=== PATIENT | male | born 1995 | race Caucasian/White ===

== ENCOUNTER 2019-01-18 10:10 | Emergency (ER) | payer BC ==
[~2019-01-18] VITALS: Ht 182.9 cm; Wt 67.1 kg
--- NOTE | 2019-01-18 10:17 | NUR ---
Patient seen by Dr. Mcgee.
--- NOTE | 2019-01-18 10:27 | NUR ---
DCD intructions and prescriptions given to pt. instructed to follow up with dentist as recommended by Levon Simpson. pt. verbalized understanding. Left room AAOX4. ambulatory pain well controlled as stated by pt.
== END 2019-01-18 10:30 | disposition home or self-care (01) ==
LOC: ER 10:10
DX: K08.89 Other specified disorders of teeth and supporting structures (principal)
CPT/HCPCS: A4663